=== PATIENT | male | born 1955 | race Hispanic/Latino ===

== ENCOUNTER 2021-02-01 05:52 | Day surgery (SDC) | payer BC ==
[2021-01-30 11:39] LABS: BASOPHILS % (AUTO) 0.6 % (0.0-5.0); EOSINOPHILS % (AUTO) 2.5 % (0.0-8.0); HEMATOCRIT 45.7 % (42-54); LYMPHOCYTES % (AUTO) 39.3 % (21.0-51.0); MEAN CORPUSCULAR HEMOGLOBIN 32.2 pg (27.0-33.0); MEAN CORPUSCULAR HGB CONC 34.1 g/dL (32.0-36.0); MEAN CORPUSCULAR VOLUME 94.2 fL (79-99); MONOCYTES % (AUTO) 8.9 % (3.0-13.0); NEUTROPHILS % (AUTO) 48.5 % (40.0-77.0); PLATELET COUNT (AUTO) 160 K/uL (130-400); RED BLOOD CELL COUNT(AUTO) 4.85 MIL/uL (4.50-6.20); RED CELL DISTRIBUTION WIDTH 12.4 % (11.0-15.5); WHITE BLOOD COUNT (AUTO) 4.8 K/uL (4.8-10.8)
[2021-01-30 11:42] LABS: APPEARANCE,URINE Clear (CLEAR); BILIRUBIN,URINE Negative (NEGATIVE); COLOR,URINE Yellow (YELLOW); GLUCOSE, URINE (UA) Negative (NEGATIVE); KETONES,URINE Negative (NEGATIVE); LEUKOCYTE ESTERASE ,URINE Negative (NEGATIVE); NITRATE,URINE Negative (NEGATIVE); OCCULT BLOOD,URINE Negative (NEGATIVE); PROTEIN,URINE Negative (NEGATIVE)
[2021-01-30 11:54] LABS: CREATININE 0.8 mg/dL (0.5-1.5); POTASSIUM 4.1 mmol/L (3.5-5.1)
[2021-01-30 12:22] LABS: INR 1.02 (0.85-1.15); PROTHROMBIN TIME 11.1 SEC (9.6-11.6)
[2021-01-30 12:23] LABS: PARTIAL THROMBOPLASTIN TIME 27.3 SEC (26.3-35.5)
[2021-01-31 10:53] VITALS: BP 154/80
[~2021-02-01] VITALS: Ht 170.2 cm; Wt 76.3 kg
[2021-02-01] VITALS (10 sets, daily range): BP systolic 114–174; BP diastolic 73–85
[2021-02-01] MEDS ORDERED: 0.9%NACL 1000ML 1,000 ML IV ONE (06:05)
[2021-02-01] MEDS ORDERED: IOHEXOL 350 MG/ML 100ML INFUS..BTL IV ONE ×2 (07:11→07:50)
[2021-02-01] MEDS ORDERED: NITROGLYCERIN 2 MG VIAL IV ONE (07:11)
[2021-02-01] MEDS ORDERED: SODIUM BICARB 50MEQ 50ML VIAL 50 ML ONE (07:11)
[2021-02-01] MEDS ORDERED: HEPARIN 10,000 UNIT/10ML (1,000 UNIT/ML) VIAL ONE (07:11)
[2021-02-01] MEDS ORDERED: MIDAZOLAM HCL 1 MG/ML 2ML VIAL ONE ×2 (07:12→07:44)
[2021-02-01] MEDS ORDERED: MEPERIDINE-PF 25 MG/ML SYG ONE ×2 (07:12→07:44)
[2021-02-01] MEDS ORDERED: LIDOCAINE HCL 400MG/20ML VIAL ONE (07:13)
[2021-02-01] MEDS ORDERED: 0.9%NACL 1000ML 1,000 ML IV SCH (08:30)
[2021-02-01 08:45] LABS: CHOLESTEROL 203 mg/dL (<200); HDL CHOLESTEROL 43 mg/dL (29-71); LDL DIRECT 138 mg/dL (0-99); TRIGLYCERIDES 152 mg/dL (30-200)
== END 2021-02-01 12:30 | disposition home or self-care (01) ==
LOC: DAH 05:52
PROVIDERS: ATTEND Internal Medicine Cardiovascular Disease
DX: I25.119 Atherosclerotic heart disease of native coronary artery with unspecified angina pectoris (principal); K55.019 Acute (reversible) ischemia of small intestine, extent unspecified; K92.2 Gastrointestinal hemorrhage, unspecified; R19.7 Diarrhea, unspecified; R63.4 Abnormal weight loss; Z79.01 Long term (current) use of anticoagulants; Z82.49 Family history of ischemic heart disease and other diseases of the circulatory system; Z79.899 Other long term (current) drug therapy; Z98.890 Other specified postprocedural states; Z90.49 Acquired absence of other specified parts of digestive tract; Z83.3 Family history of diabetes mellitus; Z68.25 Body mass index [BMI] 25.0-25.9, adult
CPT/HCPCS: 36245; 36415; 71045; 75726; 80048; 80061; 81003; 85025; 85610; 85730; 93005; 93458; 99156; 99157; A4606; C1760; C1894; J1644; J2175; J2250; J3490; J7030; Q9967

== ENCOUNTER → 2023-03-27 | Outpatient (CLI) | payer BC, MEDICARE | END | disposition home or self-care (01) | LOC: RAH 14:18 | PROVIDERS: ATTEND Student in an Organized Health Care Education/Training Program | DX: M75.102 Unspecified rotator cuff tear or rupture of left shoulder, not specified as traumatic (principal); M19.012 Primary osteoarthritis, left shoulder | CPT/HCPCS: 73221 ==

== ENCOUNTER 2023-05-08 07:53 | Day surgery (SDC) | payer MEDICARE ==
[2023-05-05 10:19] LABS: BASOPHILS # (AUTO) 0.03 K/uL (0.00-0.20); BASOPHILS % (AUTO) 0.5 % (0.0-5.0); EOSINOPHILS # (AUTO) 0.13 K/uL (0.00-0.70); EOSINOPHILS % (AUTO) 2.3 % (0.0-8.0); HEMATOCRIT 46.5 % (42-54); IMMATURE GRANULOCYTE ABSOLUTE 0.01 K/uL (0-1); LYMPHOCYTES # (AUTO) 1.8 K/uL (1.0-4.8); LYMPHOCYTES % (AUTO) 31.3 % (21.0-51.0); MEAN CORPUSCULAR HGB CONC 34.6 g/dL (32.0-36.0); MEAN CORPUSCULAR VOLUME 95.3 fL (79-99); MONOCYTES # (AUTO) 0.5 K/uL (0.1-1.0); MONOCYTES % (AUTO) 8.1 % (3.0-13.0); NEUTROPHILS # (AUTO) 3.3 K/uL (1.8-7.7); NEUTROPHILS % (AUTO) 57.6 % (40.0-77.0); PLATELET COUNT (AUTO) 172 K/uL (130-400); RED BLOOD CELL COUNT(AUTO) 4.88 MIL/uL (4.50-6.20); RED CELL DISTRIBUTION WIDTH 11.3 % (11.0-15.5); WHITE BLOOD COUNT (AUTO) 5.7 K/uL (4.8-10.8)
[2023-05-05 10:32] LABS: CREATININE 0.9 mg/dL (0.5-1.5); POTASSIUM 3.7 mmol/L (3.5-5.1)
[2023-05-05 10:33] VITALS: BP 160/80; PULSE 76; RESP 18
[~2023-05-08] VITALS: Ht 170.2 cm; Wt 80.8 kg
[2023-05-08] VITALS (16 sets, daily range): BP systolic 139–158; BP diastolic 77–96; PULSE 61–77; RESP 14–16
[~2023-05-08 07:53] MED LIST: ROSU10TA28 PO
[2023-05-08] MEDS ORDERED: CEFAZOLIN SODIUM 2 GM VIAL ONE (08:11)
[2023-05-08] MEDS ORDERED: LACTATED RINGERS 1000ML 1,000 ML IV ONE (08:11)
[2023-05-08] MEDS ORDERED: ACETAMINOPHEN 1,000 MG/100 ML VIAL IV ONE (08:33)
[2023-05-08] MEDS ORDERED: ROPIVACAINE 0.5% 5MG/ML 30ML ONE (08:34)
[2023-05-08] MEDS ORDERED: LIDOCAINE PF 100MG/5ML (2%) SYRINGE 5ML ONE (08:35)
[2023-05-08] MEDS ORDERED: FENTANYL CITRATE PF 50 MCG/1 ML 2ML VIAL ONE (08:36)
[2023-05-08] MEDS ORDERED: PROPOFOL 10 MG/ML 20ML VIAL IV ONE (08:36)
[2023-05-08] MEDS ORDERED: ROCURONIUM 10MG/1ML SYR 10 MG/ML ML ONE ×2 (08:36→11:33)
[2023-05-08] MEDS ORDERED: EPINEPHRINE PF 1MG (1:1,000) 1 MG/ML AMP ONE (09:36)
[2023-05-08] MEDS ORDERED: PHENYLEPHRINE HCL 10 MG/ML 1ML VIAL IV ONE (10:33)
[2023-05-08] MEDS ORDERED: ONDANSETRON 4MG INJ ONE ×2 (10:37→15:09)
[2023-05-08] MEDS ORDERED: DEXAMETHASONE SOD PHOSPHATE 10MG/ML 1ML VIAL ONE (10:37)
[2023-05-08] MEDS ORDERED: GLYCOPYRROLATE 1 MG/5 ML SYRINGE ONE (12:06)
[2023-05-08] MEDS ORDERED: NEOSTIGMINE 5MG/5ML SYR IV ONE (14:12)
[2023-05-08] MEDS ORDERED: HYDR-4060 PO (16:37)
[2023-05-08] MEDS ORDERED: CYCL7.5T27 PO (16:37)
== END 2023-05-08 17:30 | disposition home or self-care (01) ==
LOC: DAH 07:53
PROVIDERS: ATTEND Student in an Organized Health Care Education/Training Program
DX: M75.122 Complete rotator cuff tear or rupture of left shoulder, not specified as traumatic (principal); M75.22 Bicipital tendinitis, left shoulder; M25.812 Other specified joint disorders, left shoulder; M19.012 Primary osteoarthritis, left shoulder; M94.212 Chondromalacia, left shoulder; S43.082A Other subluxation of left shoulder joint, initial encounter; K55.059 Acute (reversible) ischemia of intestine, part and extent unspecified; I25.10 Atherosclerotic heart disease of native coronary artery without angina pectoris; X58.XXXA Exposure to other specified factors, initial encounter; Y93.89 Activity, other specified; Y92.89 Other specified places as the place of occurrence of the external cause; Y99.8 Other external cause status; Z83.3 Family history of diabetes mellitus; Z80.9 Family history of malignant neoplasm, unspecified; Z82.49 Family history of ischemic heart disease and other diseases of the circulatory system; Z79.891 Long term (current) use of opiate analgesic; Z90.49 Acquired absence of other specified parts of digestive tract; Z79.899 Other long term (current) drug therapy; Z98.890 Other specified postprocedural states
CPT/HCPCS: 80048; 85025; 29827; 64415; 29826; 29828; A4663; J7120 ×2; A4565; A4452; J3010; J3490; J1100; J2710; J2001; J0171; J2704; J2405 ×2; J2795; J2371; J0690; A6223; C1713 ×2; A5120; A4215; A4223; A4222; A4221; A4600; 36415

== ENCOUNTER → 2024-12-21 | Outpatient (CLI) | payer OTHER ==
[~2024-12-21] MED LIST changes: +ASPI-1197 PO; +OLME20TA68 PO; -ROSU10TA28 PO; +ROSU10TA72 PO
--- NOTE | 2024-12-21 17:48 | HMCIMG ---
EXAM: MR RIGHT SHOULDER WITHOUT CONTRAST CLINICAL HISTORY: 69-year-old male with an unspecified rotator cuff tear or rupture of the right shoulder. TECHNIQUE: Multiplanar multisequence magnetic resonance images were obtained without contrast. CONTRAST: None COMPARISON: None FINDINGS: JOINTS: Large intra-articular joint effusion. There is superior displacement of the humeral head with respect to the glenoid and impingement on the acromion. Mild acromioclavicular joint degenerative changes are seen. There is evidence for resection of the acromion. BONE: Fixation hardware of the greater tuberosity seen. A bald comanche sign of the humeral head is seen. SOFT TISSUES: Full-thickness tear of the subscapularis with retraction of at least 3.0 cm. Full-thickness tear of the supraspinatus with retraction at least 4.2 cm. Full-thickness tear of the infraspinatus with retraction of at least 3 cm. Teres minor demonstrates a full-thickness tear as well with retraction of at least 2.1 cm. Complete rotator cuff tears with fluid around the biceps tendon suggesting moderate biceps tendinitis. IMPRESSION: 1. Large intra-articular joint effusion. 2. Full-thickness tears of the subscapularis, supraspinatus, infraspinatus, and teres minor with retraction. 3. Moderate biceps tendinitis. 4. Superior displacement of the humeral head with respect to the glenoid and impingement on the acromion. 5. Mild AC joint degenerative changes and evidence for resection of the acromion. /[place]
== END | disposition home or self-care (01) ==
LOC: RAH 12:13
PROVIDERS: ATTEND Orthopaedic Surgery
DX: M75.121 Complete rotator cuff tear or rupture of right shoulder, not specified as traumatic (principal); M19.011 Primary osteoarthritis, right shoulder; M75.21 Bicipital tendinitis, right shoulder; M25.411 Effusion, right shoulder; M25.811 Other specified joint disorders, right shoulder
CPT/HCPCS: 73221